=== PATIENT | male | born 1955 | race Caucasian/White ===

== ENCOUNTER 2021-08-22 19:51 | Inpatient (IN) | payer MEDICARE ==
[~2021-08-22] VITALS: Ht 177.8 cm; Wt 77.2 kg
[2021-08-22] MEDS ORDERED: INSULIN LISPRO 100 UNITS/ML SQ PRN (21:45)
[2021-08-22] MEDS ORDERED: OxyCODONE HCL/ACETAMINOPHEN 5-325 MG TABLET PO PRN (21:45)
[2021-08-22] MEDS ORDERED: ACETAMINOPHEN 325 MG TABLET PO PRN (21:45)
[2021-08-22] MEDS ORDERED: ZOLPIDEM TARTRATE 5 MG TABLET PO PRN (21:45)
[2021-08-22] MEDS ORDERED: DEXTROSE 50%-WATER 25 GM/50 ML SYRINGE IVP PRN (21:45)
[2021-08-22] MEDS ORDERED: ONDANSETRON HCL 4 MG/2 ML VIAL IVP PRN (21:45)
[2021-08-23] VITALS: BP 145/86
[2021-08-23] MEDS ORDERED: INFLUENZA VIRUS VACCINE QVS 2021-22 (6MO+)/PF 60 MCG/0.5 ML SYRINGE IM. ONE (01:15)
[2021-08-23] MEDS ORDERED: PNEUMOCOCCAL VACCINE POLYVALENT 0.5 ML VIAL [PPSV23] IM. ONE (01:15)
[2021-08-23 04:25] VITALS: BP 130/65
[2021-08-23 07:12] LABS: HEMATOCRIT 35.3 % (41-53); HEMOGLOBIN 11.9 g/dL (13.5-17.5); MEAN CORPUSCULAR HEMOGLOBIN 31.9 pg (26.0-34.0); MEAN CORPUSCULAR HGB CONC 33.7 G/dL (31.0-37.0); MEAN CORPUSCULAR VOLUME 95 fL (80-100); PLATELET COUNT (AUTO) 302 K/uL (150-450); RED BLOOD CELL COUNT(AUTO) 3.73 MIL/uL (4.50-5.90); RED CELL DISTRIBUTION WIDTH 15.7 % (11.5-14.5)
[2021-08-23 07:18] LABS: CALCIUM, TOTAL 8.2 mg/dL (8.8-10.5); CREATININE 1.56 mg/dL (0.60-1.30); POTASSIUM 4.2 mmol/L (3.5-5.1)
[2021-08-23 07:24] LABS: INR 1.2 (0.9-1.1); PROTHROMBIN TIME 12.5 SEC (9.4-11.6)
[2021-08-23 07:50] VITALS: BP 143/108
[2021-08-23] MEDS ORDERED: CARVEDILOL 6.25 MG TABLET PO SCH (09:00)
[2021-08-23] MEDS: DOCUSATE SODIUM 100 MG CAPSULE PO SCH ×2 (10:01→20:58)
[2021-08-23] MEDS: APIXABAN 5 MG TABLET PO SCH ×2 (10:02→20:58)
[2021-08-23] MEDS: FAMOTIDINE 20 MG TABLET PO SCH (10:02)
[2021-08-23 11:12] VITALS: BP 137/88
[2021-08-23 12:19] LABS: BAND NEUTROPHILS % (MANUAL) 0 % (0-5)
[2021-08-23 12:21] LABS: BASOPHILS % (MANUAL) 1 % (0-2); EOSINOPHILS % (MANUAL) 35 % (1-6); LYMPHOCYTES % (MANUAL) 9 % (22-44); MONOCYTES % (MANUAL) 6 % (2-9); SEGMENTED NEUTROPHILS % 49 % (40-70)
[2021-08-23 15:35] VITALS: BP 121/71
[2021-08-23] MEDS ORDERED: FUROSEMIDE 40 MG/4 ML VIAL IVP SCH (18:00)
[2021-08-23 19:45] VITALS: BP 133/88
[2021-08-23] MEDS: CARVEDILOL 12.5 MG TABLET PO SCH (20:58)
[2021-08-23] MEDS: FUROSEMIDE 20 MG/2 ML VIAL IVP SCH (20:58)
[2021-08-24] VITALS: BP 119/80
[2021-08-24 05:19] VITALS: BP 132/83
[2021-08-24 08:42] VITALS: BP 142/103
[2021-08-24] MEDS: FAMOTIDINE 20 MG TABLET PO SCH (09:06)
[2021-08-24] MEDS: APIXABAN 5 MG TABLET PO SCH ×2 (09:06→21:11)
[2021-08-24] MEDS: DOCUSATE SODIUM 100 MG CAPSULE PO SCH ×2 (09:06→21:11)
[2021-08-24] MEDS: CARVEDILOL 12.5 MG TABLET PO SCH ×2 (09:06→21:11)
[2021-08-24] MEDS: FUROSEMIDE 20 MG/2 ML VIAL IVP SCH ×2 (09:07→21:11)
[2021-08-24 11:48] VITALS: BP 114/89
[2021-08-24] MEDS: LISINOPRIL 5 MG TABLET PO SCH (13:00)
[2021-08-24 13:35] LABS: HEMATOCRIT 38.7 % (41-53); HEMOGLOBIN 12.8 g/dL (13.5-17.5); MEAN CORPUSCULAR HEMOGLOBIN 31.7 pg (26.0-34.0); MEAN CORPUSCULAR HGB CONC 33.1 G/dL (31.0-37.0); MEAN CORPUSCULAR VOLUME 96 fL (80-100); PLATELET COUNT (AUTO) 334 K/uL (150-450); RED BLOOD CELL COUNT(AUTO) 4.04 MIL/uL (4.50-5.90); RED CELL DISTRIBUTION WIDTH 15.9 % (11.5-14.5)
[2021-08-24 13:37] LABS: BAND NEUTROPHILS % (MANUAL) 1 % (0-5); EOSINOPHILS % (MANUAL) 30 % (1-6); LYMPHOCYTES % (MANUAL) 8 % (22-44); MONOCYTES % (MANUAL) 7 % (2-9); SEGMENTED NEUTROPHILS % 54 % (40-70)
[2021-08-24 14:01] LABS: CALCIUM, TOTAL 8.7 mg/dL (8.8-10.5); CREATININE 1.56 mg/dL (0.60-1.30); POTASSIUM 4.4 mmol/L (3.5-5.1)
[2021-08-24 14:07] LABS: BILIRUBIN,TOTAL 0.5 mg/dL (0.1-1.0)
[2021-08-24 15:45] VITALS: BP 109/66
[2021-08-24 18:35] LABS: COVID AG,FIA SOURCE NASOPHARYNGEAL
[2021-08-24 20:37] VITALS: BP 96/64
[2021-08-25 00:40] VITALS: BP 104/74
[2021-08-25 06:18] VITALS: BP 110/70
[2021-08-25 07:14] LABS: HEMATOCRIT 38.5 % (41-53); MEAN CORPUSCULAR HEMOGLOBIN 31.8 pg (26.0-34.0); MEAN CORPUSCULAR HGB CONC 33.7 G/dL (31.0-37.0); MEAN CORPUSCULAR VOLUME 94 fL (80-100); PLATELET COUNT (AUTO) 352 K/uL (150-450); RED BLOOD CELL COUNT(AUTO) 4.08 MIL/uL (4.50-5.90); RED CELL DISTRIBUTION WIDTH 15.7 % (11.5-14.5)
[2021-08-25 07:26] LABS: BAND NEUTROPHILS % (MANUAL) 0 % (0-5)
[2021-08-25 07:51] LABS: BILIRUBIN,TOTAL 0.5 mg/dL (0.1-1.0); CALCIUM, TOTAL 8.7 mg/dL (8.8-10.5); CREATININE 1.55 mg/dL (0.60-1.30); POTASSIUM 4.5 mmol/L (3.5-5.1); TOTAL PROTEIN, SERUM 7.1 g/dL (6.4-8.2)
[2021-08-25 08:00] VITALS: BP 138/92
[2021-08-25] MEDS: DOCUSATE SODIUM 100 MG CAPSULE PO SCH ×2 (08:54→20:49)
[2021-08-25] MEDS: APIXABAN 5 MG TABLET PO SCH ×2 (08:54→20:04)
[2021-08-25] MEDS: FAMOTIDINE 20 MG TABLET PO SCH (08:54)
[2021-08-25] MEDS: CARVEDILOL 12.5 MG TABLET PO SCH ×2 (08:55→20:49)
[2021-08-25] MEDS: FUROSEMIDE 20 MG/2 ML VIAL IVP SCH ×2 (08:55→20:49)
[2021-08-25] MEDS: LISINOPRIL 5 MG TABLET PO SCH (08:55)
[2021-08-25 08:57] LABS: EOSINOPHILS % (MANUAL) 21 % (1-6); LYMPHOCYTES % (MANUAL) 15 % (22-44); MONOCYTES % (MANUAL) 4 % (2-9); SEGMENTED NEUTROPHILS % 60 % (40-70)
[2021-08-25 11:38] VITALS: BP 110/80
[2021-08-25 15:45] VITALS: BP 123/70
[2021-08-25 20:15] VITALS: BP 104/69
[2021-08-26] VITALS (17 sets, daily range): BP systolic 94–139; BP diastolic 56–90
[2021-08-26] MEDS ORDERED: SODIUM BICARBONATE 50 MEQ/50 ML VIAL ONE (08:09)
[2021-08-26] MEDS ORDERED: LIDOCAINE/PF 1% 30 ML VIAL ONE (08:09)
[2021-08-26] MEDS ORDERED: HEPARIN SODIUM 1000 UNITS/NS 1,000 ML ONE (08:09)
[2021-08-26] MEDS ORDERED: IOHEXOL 300 MG/ML 150 ML VIAL ONE (08:09)
[2021-08-26] MEDS ORDERED: IOHEXOL 300 MG/ML 50 ML VIAL ONE (08:43)
[2021-08-26] MEDS ORDERED: FentaNYL CITRATE PF 100 MCG/2 ML VIAL ONE (08:53)
[2021-08-26] MEDS ORDERED: MIDAZOLAM HCL 2 MG/2 ML VIAL ONE (08:53)
[2021-08-26] MEDS: DOCUSATE SODIUM 100 MG CAPSULE PO SCH ×2 (09:00→20:42)
[2021-08-26] MEDS ORDERED: LIDOCAINE 1% 30 ML/SOD BICARB 8.4% 4 ML SQ ONE (09:30)
[2021-08-26] MEDS ORDERED: MIDAZOLAM HCL 2 MG/2 ML VIAL IVP ONE (09:30)
[2021-08-26] MEDS ORDERED: SODIUM CHLORIDE 0.9% 500 ML IV ONE (09:30)
[2021-08-26] MEDS ORDERED: IOHEXOL 300 MG/ML 150 ML VIAL IARTER ONE (09:30)
[2021-08-26] MEDS ORDERED: FentaNYL CITRATE PF 100 MCG/2 ML VIAL IVP ONE (09:30)
[2021-08-26] MEDS ORDERED: HEPARIN SODIUM 1000 UNITS/NS 1,000 ML IARTER ONE (09:30)
[2021-08-26] MEDS: APIXABAN 5 MG TABLET PO SCH ×2 (10:35→20:42)
[2021-08-26] MEDS: CARVEDILOL 12.5 MG TABLET PO SCH ×2 (10:35→20:42)
[2021-08-26] MEDS: FUROSEMIDE 20 MG/2 ML VIAL IVP SCH ×2 (10:35→20:42)
[2021-08-26] MEDS: FAMOTIDINE 20 MG TABLET PO SCH (10:35)
[2021-08-26] MEDS: LISINOPRIL 5 MG TABLET PO SCH (10:37)
[2021-08-26] MEDS: ATORVASTATIN CALCIUM 40 MG TABLET PO SCH (13:25)
[2021-08-27 00:40] VITALS: BP 92/61
[2021-08-27 04:39] VITALS: BP 111/69
[2021-08-27 08:28] VITALS: BP 116/68
[2021-08-27] MEDS ORDERED: CLOPIDOGREL BISULFATE 75 MG TABLET PO SCH (10:00)
[2021-08-27] MEDS ORDERED: CARV12 PO (10:27)
[2021-08-27] MEDS ORDERED: ATOR40TA28 PO (10:27)
[2021-08-27] MEDS ORDERED: FURO20 PO (10:28)
[2021-08-27] MEDS ORDERED: CLOP75TA60 PO (10:33)
[2021-08-27] MEDS: ATORVASTATIN CALCIUM 40 MG TABLET PO SCH (10:50)
[2021-08-27] MEDS: LISINOPRIL 5 MG TABLET PO SCH (10:50)
[2021-08-27] MEDS: APIXABAN 5 MG TABLET PO SCH (10:50)
[2021-08-27] MEDS: CARVEDILOL 12.5 MG TABLET PO SCH (10:51)
[2021-08-27] MEDS: FAMOTIDINE 20 MG TABLET PO SCH (10:51)
[2021-08-27] MEDS: DOCUSATE SODIUM 100 MG CAPSULE PO SCH (10:51)
[2021-08-27] MEDS: FUROSEMIDE 20 MG/2 ML VIAL IVP SCH (10:52)
[2021-08-27 11:47] LABS: HEMATOCRIT 36.5 % (41-53); HEMOGLOBIN 12.3 g/dL (13.5-17.5); MEAN CORPUSCULAR HEMOGLOBIN 31.8 pg (26.0-34.0); MEAN CORPUSCULAR HGB CONC 33.8 G/dL (31.0-37.0); MEAN CORPUSCULAR VOLUME 94 fL (80-100); PLATELET COUNT (AUTO) 325 K/uL (150-450); RED BLOOD CELL COUNT(AUTO) 3.87 MIL/uL (4.50-5.90); RED CELL DISTRIBUTION WIDTH 15.6 % (11.5-14.5)
[2021-08-27 11:59] LABS: CALCIUM, TOTAL 8.9 mg/dL (8.8-10.5); CREATININE 1.32 mg/dL (0.60-1.30); POTASSIUM 4.7 mmol/L (3.5-5.1)
[2021-08-27 12:03] VITALS: BP 122/61
[2021-08-27 12:28] LABS: BAND NEUTROPHILS % (MANUAL) 3 % (0-5); EOSINOPHILS % (MANUAL) 30 % (1-6); LYMPHOCYTES % (MANUAL) 10 % (22-44); MONOCYTES % (MANUAL) 8 % (2-9); SEGMENTED NEUTROPHILS % 49 % (40-70)
[2021-08-27 16:03] VITALS: BP 120/56
[2021-08-28] MEDS ORDERED: ISOSORBIDE MONONITRATE 30 MG ER TABLET PO SCH (09:00)
== END 2021-08-27 17:00 | disposition home or self-care (01) | DRG 286 ==
LOC: EMS 19:52 → 5S 21:37
PROVIDERS: ADMIT Internal Medicine; ATTEND Internal Medicine
PROC: 4A023N7 Measurement of Cardiac Sampling and Pressure, Left Heart, Percutaneous Approach (ICD-10-PCS; principal; 2021-08-26)
PROC: B2111ZZ Fluoroscopy of Multiple Coronary Arteries using Low Osmolar Contrast (ICD-10-PCS; 2021-08-26)
DX: I25.10 Atherosclerotic heart disease of native coronary artery without angina pectoris (principal); I50.23 Acute on chronic systolic (congestive) heart failure; I13.0 Hypertensive heart and chronic kidney disease with heart failure and stage 1 through stage 4 chronic kidney disease, or unspecified chronic kidney disease; N17.9 Acute kidney failure, unspecified; I42.9 Cardiomyopathy, unspecified; I48.0 Paroxysmal atrial fibrillation; Z20.822 Contact with and (suspected) exposure to COVID-19; F15.10 Other stimulant abuse, uncomplicated; N18.30 Chronic kidney disease, stage 3 unspecified; K21.9 Gastro-esophageal reflux disease without esophagitis; I25.2 Old myocardial infarction
CPT/HCPCS: 71045; 80048; 80053; 83880; 84484; 85025; 85610; 93306; 99285; J1644; J1940; J2250; J3010; J3490; Q9967; 36415-L1; 36415-TC; U0003